=== PATIENT | male | born 1950 | race Caucasian/White ===

== ENCOUNTER → 2016-08-15 | Day surgery (SDC) | payer OTHER ==
[~2016-08-15] VITALS: Ht 185.4 cm; Wt 129.7 kg
[~2016-08-15] MED LIST: AMOXICILLIN500 MG PO; ANTIVERT/2525 M1 PO; ANTIVERT25 MG PO; ASPIR LOW81 MG PO; Atrovent 0.03%30 ML NAS; BIAXIN500 MG PO; CAPOTEN50 MG PO; CYCLOBENZAPRINE10 MG PO; EPI EZ PEN1 MG/ML IM; FLONASE 0.05% 121 EA NAS; HYDR25T PO; KEFLEX500 MG PO; LIPITOR40 MG PO; MUCINEX ALLERG180 MG PO; PLAVIX75 MG PO; PRINIVIL20 M1 PO; ROBITUSSIN DM 105 ML PO; SALINE NASAL M126 ML NS; SYNTHROID,LEV125 MCG PO; Synthroid,Lev100 MCG PO; VICODIN 500 MG-1 TAB PO; VITAMIN D-32000 UNIT PO; XANAX0.25 MG PO; ZYRTEC10 MG PO
--- NOTE | ~2016-08-15 | PROC NOTE ---
[place], [place] PROCEDURE NOTE NAME: DIONICIO ALCARAZ SR [facility] #: [id number] UNIT #: [id number] ROOM: DOCTOR: LANCE JAMES MD BIRTHDATE: [birth year] DOS: 08/15/2016 PREOPERATIVE DIAGNOSIS: Screening examination. POSTOPERATIVE DIAGNOSIS: Screening examination. PROCEDURE: Colonoscopy. ENDOSCOPIST: Dr. Lance James. DEPUTY CLERK: [id number]. ANESTHESIA: MAC. INDICATIONS: This is a 65-year-old gentleman who is here for a screening colonoscopy. The procedure and its complications were explained to the patient in detail preoperatively. Complications that were discussed included but were not limited to bleeding, missed lesions and colon perforation. He agreed to proceed. DESCRIPTION OF PROCEDURE: After identifying the patient, the patient was brought to the endoscopy suite and placed in the left lateral position. After time-out procedure was called, IV sedation was administered and a digital rectal exam was performed. This was within normal limits. An adult colonoscope was now introduced into the anal canal and advanced sequentially into the rectum, sigmoid colon, descending colon, transverse colon and ascending colon up to the cecum. Upon reaching the cecum, the scope was withdrawn. Total withdrawal time was approximately 7 minutes. Sigmoid diverticulosis was identified. Otherwise, there were no other lesions that could be seen. The scope was withdrawn and the patient was taken to the recovery room in stable fashion. Based on these findings, the patient is recommended to have another colonoscopy in 10 years or sooner if new symptoms appear. I have spoken about this to his daughter in the postoperative recovery room. I will talk to the patient himself in about 2 weeks in the office. Lance James MD CM:PROCNOTE:PROCEDURE NOTE [id number] LANCE JAMES MD
[2016-08-15 08:45] VITALS: BP 84/46
[2016-08-15 09:00] VITALS: BP 110/51
[2016-08-15 09:15] VITALS: BP 121/69
== END | disposition home or self-care (01) ==
LOC: SDC 08-13 09:33
DX: Z12.11 Encounter for screening for malignant neoplasm of colon (principal); K57.30 Diverticulosis of large intestine without perforation or abscess without bleeding; I10 Essential (primary) hypertension; F41.9 Anxiety disorder, unspecified; Z86.73 Personal history of transient ischemic attack (TIA), and cerebral infarction without residual deficits; E03.9 Hypothyroidism, unspecified; H81.09 Meniere's disease, unspecified ear; Z91.030 Bee allergy status; Z86.14 Personal history of Methicillin resistant Staphylococcus aureus infection; Z98.890 Other specified postprocedural states

== ENCOUNTER 2016-08-18 23:15 | Emergency (ER) | payer OTHER ==
[~2016-08-18] VITALS: Ht 177.8 cm; Wt 90.7 kg
[2016-08-19 00:13] LABS: ALBUMIN 3.6 gm/dl (3.1-4.5); ALKALINE PHOSPHATASE 88 U/L (45-117); BILIRUBIN, TOTAL 0.4 mg/dl (0.2-1.0); BUN 13 mg/dl (7-24); CARBON DIOXIDE 28 mmol/L (21-32); CHLORIDE 100 mmol/L (98-107); EST GLOM FILT AFRICAN AMERICAN > 60 ml/min; GLUCOSE 101 mg/dL (65-99); POTASSIUM 3.7 mmol/L (3.5-5.1); SGOT/AST 20 IU/L (3-35); SGPT/ALT 32 U/L (12-78); SODIUM 137 mmol/L (136-145); TOTAL PROTEIN 7.4 gm/dL (6.4-8.2)
[2016-08-19 00:14] LABS: C-REACTIVE PROTEIN < 0.29 MG/DL (0-0.3); TROPONIN I < 0.015 ng/ml (<0.045)
[2016-08-19 00:20] LABS: BASO # 0.1 10*3/uL (0.0-0.1); BASO % 0.5 % (0.0-1.0); EOS # 0.1 10*3/uL (0.0-0.4); EOS % 1.2 % (1.0-4.0); HEMATOCRIT 40.8 % (42.0-52.0); LYMPH # 1.8 10*3/uL (1.3-4.4); MEAN CELL VOLUME 92.5 fl (80.0-94.0); MEAN CORPUSCULAR HGB 31.7 pg (27.0-31.0); MEAN CORPUSCULAR HGB CONC 34.3 g/dl (33.0-37.0); MEAN PLATELET VOLUME 9.5 fl (9.6-12.3); MONO # 0.8 10*3/uL (0.1-1.0); MONO % 8.4 % (3.0-9.0); NEUT # 6.5 10*3/uL (2.3-7.9); NEUT % 70.6 % (47.0-73.0); PLATELET COUNT AUTOMATED 218 10*3/uL (130-400); RED BLOOD COUNT 4.41 10*6/uL (4.50-5.90); RED CELL DISTRI WIDTH 13.2 % (0-14.5); WHITE BLOOD COUNT 9.2 10*3/uL (4.8-10.8)
[2016-08-19 03:06] LABS: BILIRUBIN NEGATIVE (NEGATIVE); BLOOD NEGATIVE (NEGATIVE); CLARITY CLEAR (CLEAR); COLOR YELLOW (YELLOW); GLUCOSE NEGATIVE (NEGATIVE); KETONE NEGATIVE (NEGATIVE); LEUKO ESTERASE NEGATIVE (NEGATIVE); NITRITE NEGATIVE (NEGATIVE); PROTEIN NEGATIVE (NEGATIVE); SPECIFIC GRAVITY <= 1.005 (1.005-1.030); UROBILINOGEN 0.2 E.U./dl (0.2-1.0)
[2016-08-19 03:14] LABS: RBC 0-2 rbc/hpf (0-2); URINE REFLEX COMMENT NO (NO); WBC 0-2 wbc/hpf (0-5)
[2016-08-19 04:00] VITALS: BP 133/74
== END 2016-08-19 04:00 | disposition short-term general hospital (02) ==
LOC: ED 23:15
PROVIDERS: Emergency Medicine Emergency Medical Services
DX: G45.9 Transient cerebral ischemic attack, unspecified (principal); I10 Essential (primary) hypertension; E03.9 Hypothyroidism, unspecified; Z79.82 Long term (current) use of aspirin; Z88.1 Allergy status to other antibiotic agents; Z88.6 Allergy status to analgesic agent; Z88.8 Allergy status to other drugs, medicaments and biological substances; Z79.899 Other long term (current) drug therapy

== ENCOUNTER 2016-09-09 16:02 | Emergency (ER) | payer OTHER ==
[~2016-09-09] VITALS: Ht 190.5 cm; Wt 102.1 kg
[2016-09-09 16:02] VITALS: BP 145/93
[2016-09-09 17:09] LABS: BASO % 0.4 % (0.0-1.0); EOS # 0.1 10*3/uL (0.0-0.4); EOS % 1.1 % (1.0-4.0); HEMATOCRIT 43.4 % (42.0-52.0); HEMOGLOBIN 14.6 g/dl (14.0-18.0); IG # 0.1 10*3/uL (0.0-0.1); LYMPH # 1.2 10*3/uL (1.3-4.4); MEAN CELL VOLUME 94.8 fl (80.0-94.0); MEAN CORPUSCULAR HGB 31.9 pg (27.0-31.0); MEAN CORPUSCULAR HGB CONC 33.6 g/dl (33.0-37.0); MEAN PLATELET VOLUME 9.7 fl (9.6-12.3); MONO # 0.5 10*3/uL (0.1-1.0); MONO % 7.2 % (3.0-9.0); NEUT # 5.6 10*3/uL (2.3-7.9); NEUT % 74.6 % (47.0-73.0); PLATELET COUNT AUTOMATED 220 10*3/uL (130-400); RED BLOOD COUNT 4.58 10*6/uL (4.50-5.90); WHITE BLOOD COUNT 7.5 10*3/uL (4.8-10.8)
[2016-09-09 17:17] LABS: PROTHROMBIN TIME 10.2 SECONDS (9.0-12.4)
[2016-09-09] MEDS ORDERED: GOOD SENSE ASPI81 M1 PO (17:17)
[2016-09-09] MEDS ORDERED: CAPOTEN50 MG PO (17:18)
[2016-09-09 17:26] LABS: ALBUMIN 3.5 gm/dl (3.1-4.5); BILIRUBIN, TOTAL 0.4 mg/dl (0.2-1.0); BUN 13 mg/dl (7-24); CARBON DIOXIDE 28 mmol/L (21-32); CHLORIDE 101 mmol/L (98-107); EST GLOM FILT AFRICAN AMERICAN > 60 ml/min; GLUCOSE 93 mg/dL (65-99); MAGNESIUM 2.1 mg/dL (1.5-2.1); POTASSIUM 3.5 mmol/L (3.5-5.1); SGOT/AST 31 IU/L (3-35); SGPT/ALT 34 U/L (12-78); SODIUM 139 mmol/L (136-145); TOTAL PROTEIN 7.5 gm/dL (6.4-8.2)
[2016-09-09 17:30] LABS: ALKALINE PHOSPHATASE 88 U/L (45-117); CPK 102 U/L (39-308); TROPONIN I < 0.015 ng/ml (<0.045)
== END 2016-09-09 18:37 | disposition home or self-care (01) ==
LOC: ED 16:02
PROVIDERS: Registered Nurse
DX: R51 Headache (principal); Z86.73 Personal history of transient ischemic attack (TIA), and cerebral infarction without residual deficits; Z88.6 Allergy status to analgesic agent; Z88.1 Allergy status to other antibiotic agents; Z88.8 Allergy status to other drugs, medicaments and biological substances; Z79.899 Other long term (current) drug therapy; Z79.82 Long term (current) use of aspirin

== ENCOUNTER → 2017-03-12 | Outpatient (CLI) | payer OTHER ==
[~2017-03-12] MED LIST changes: +GOOD SENSE ASPI81 M1 PO
== END | disposition home or self-care (01) ==
LOC: US 12:37
DX: I65.23 Occlusion and stenosis of bilateral carotid arteries (principal)

== ENCOUNTER → 2020-04-04 | Outpatient (CLI) | payer OTHER | END | disposition home or self-care (01) | LOC: US 06:49 | PROVIDERS: ATTEND Physician Assistant | DX: K76.0 Fatty (change of) liver, not elsewhere classified (principal); R74.8 Abnormal levels of other serum enzymes ==